=== PATIENT | female | born 1965 | race Caucasian/White ===

== ENCOUNTER 2018-03-22 22:53 | Observation (INO) | payer BC ==
[~2018-03-22] VITALS: Ht 160 cm; Wt 100.0 kg
[2018-03-22 23:30] VITALS: BP 144/92
[2018-03-22 23:30] LABS: HEMATOCRIT 44.5 % (36.0-48.0); HEMOGLOBIN 14.5 g/dL (12-16); LYMPHOCYTES 22.9 % (15-50); MCH 26.3 pg (26.0-34.0); MCHC 32.6 g/dL (31.0-37.0); MCV 80.6 fL (80.0-100.0); NEUTROPHILS 68.9 % (40-80); PLATELET COUNT 203 10x3/uL (130-400); RBC 5.52 10x6/uL (4.00-5.40); RDW 14.1 % (11.5-14.5); WBC 8.8 10x3/uL (4.8-10.8)
[2018-03-22 23:54] LABS: ALBUMIN 3.8 g/dL (3.4-5.0); ALKALINE PHOSPHATASE 56 U/L (46-116); ALT (SGPT) 31 U/L (10-68); BILIRUBIN - TOTAL 0.51 mg/dL (0.2-1.3); CALC OSMOLALITY 286 mosm/kg (275-300); CALCIUM 9.7 mg/dL (8.5-10.1); CARBON DIOXIDE 31.7 mmol/L (21.0-32.0); CHLORIDE - SERUM 102 mmol/L (98-107); CREATININE - SERUM 0.7 mg/dL (0.6-1.3); GLUCOSE 96 mg/dL (74-106); POTASSIUM - SERUM 3.9 mmol/L (3.5-5.1); PROTEIN - SERUM 8.1 g/dL (6.4-8.2); SODIUM 143 mmol/L (136-145); UREA NITROGEN 18 mg/dL (7-18); eGFR NON AFRICAN AMERICAN > 90 mL/min (90-120)
[2018-03-22 23:59] LABS: TROPONIN-I < 0.017 ng/mL (0.000-0.060)
[2018-03-23] VITALS (14 sets, daily range): BP systolic 115–145; BP diastolic 71–93
[2018-03-23 07:33] LABS: CREATINE KINASE 76 UL (21-215); TROPONIN-I < 0.017 ng/mL (0.000-0.060)
[2018-03-23 11:52] LABS: CKMB 0.7 U/L (0.0-3.6); CREATINE KINASE 68 UL (21-215); TROPONIN-I < 0.017 ng/mL (0.000-0.060)
[2018-03-23 18:26] LABS: CKMB 0.6 U/L (0.0-3.6); CREATINE KINASE 124 UL (21-215); TROPONIN-I < 0.017 ng/mL (0.000-0.060)
[2018-03-23] MEDS ORDERED: OMEPRAZOLE20 M1 PO (20:54)
[2018-03-23] MEDS ORDERED: TUMS X-STR300 MG PO (20:55)
[2018-03-24 02:57] VITALS: Ht 160 cm; Wt 100.0 kg
[2018-03-24 05:14] VITALS: BP 124/75
[2018-03-24 08:01] VITALS: BP 139/79
[2018-03-24 11:32] VITALS: BP 127/75
[2018-03-24] MEDS ORDERED: CARAFATE1 G/10 ML PO (12:52)
[2018-03-28 15:23] LABS: RMSF IGM 0.71 index (0.00-0.89)
== END 2018-03-24 15:21 | disposition home or self-care (01) ==
LOC: D.ER 22:53 → D.EDHOLD 03-23 00:54 → D.M2 03-23 00:54 → D.EDHOLD 03-23 00:54 → OBSVTIME 03-23 00:54 → D.M2 03-23 14:50
PROVIDERS: Family Medicine; Internal Medicine Cardiovascular Disease
DX: K21.0 Gastro-esophageal reflux disease with esophagitis (principal); K44.9 Diaphragmatic hernia without obstruction or gangrene; K22.10 Ulcer of esophagus without bleeding; K29.80 Duodenitis without bleeding; K31.7 Polyp of stomach and duodenum; I34.0 Nonrheumatic mitral (valve) insufficiency

== ENCOUNTER → 2018-04-04 11:08 | Outpatient (CLI) | payer BC ==
[~2018-04-04 11:08] MED LIST: CARAFATE1 G/10 ML PO; OMEPRAZOLE20 M1 PO; PROVENTIL HFA6.7 GM INH; STERAPRED DS 1210 MG PO; TUMS X-STR300 MG PO; VIBRAMYCIN 100100 MG PO
[2018-04-05 10:19] LABS: IMMUNOGLOBULIN A 322 mg/dL (87-352)
[2018-04-06 12:18] LABS: ANTIGLIADIN IGA 5 units (0-19); ANTIGLIADIN IGG 2 units (0-19)
[2018-04-06 14:25] LABS: T-TRANSGLUTAMINASE IGA <2 U/mL (0-3); T-TRANSGLUTAMINASE IGG <2 U/mL (0-5)
== END | disposition home or self-care (01) ==
LOC: D.LAB 10:15
PROVIDERS: Internal Medicine Gastroenterology
DX: R10.9 Unspecified abdominal pain (principal); R07.89 Other chest pain

== ENCOUNTER 2018-05-08 15:24 | Emergency (ER) | payer BC ==
[~2018-05-08] VITALS: Ht 160 cm; Wt 90.9 kg
[~2018-05-08 15:24] MED LIST changes: -PROVENTIL HFA6.7 GM INH; -STERAPRED DS 1210 MG PO; -VIBRAMYCIN 100100 MG PO
[2018-05-08 15:37] VITALS: Ht 160 cm; Wt 90.9 kg
[2018-05-08 15:57] LABS: BASOPHILS 0.4 % (0-2); EOSINOPHILS 3.4 % (0-7); HEMATOCRIT 42.7 % (36.0-48.0); HEMOGLOBIN 14.3 g/dL (12-16); IMMATURE GRANULOCYTES 0.4 % (0-5); LYMPHOCYTES 25.3 % (15-50); MCH 27.4 pg (26.0-34.0); MCHC 33.5 g/dL (31.0-37.0); MEAN PLATELET VOLUME 10.1 fL (7.4-10.4); MONOCYTES 8.2 % (2-11); NEUTROPHILS 62.3 % (40-80); PLATELET COUNT 221 10x3/uL (130-400); RBC 5.21 10x6/uL (4.00-5.40); RDW 15.4 % (11.5-14.5); WBC 8.1 10x3/uL (4.8-10.8)
[2018-05-08 16:33] LABS: ALBUMIN 3.4 g/dL (3.4-5.0); ANION GAP 11.8 mmol/L (8-16); BILIRUBIN - TOTAL 0.53 mg/dL (0.2-1.3); CARBON DIOXIDE 26.7 mmol/L (21.0-32.0); CREATININE - SERUM 1.1 mg/dL (0.6-1.3); POTASSIUM - SERUM 3.5 mmol/L (3.5-5.1); PROTEIN - SERUM 7.5 g/dL (6.4-8.2)
[2018-05-08] MEDS ORDERED: PROVENTIL HFA6.7 GM INH (18:37)
[2018-05-08 20:04] VITALS: BP 120/86
== END 2018-05-08 20:06 | disposition home or self-care (01) ==
LOC: D.ER 15:24
PROVIDERS: Family Medicine
DX: J18.9 Pneumonia, unspecified organism (principal); I10 Essential (primary) hypertension

== ENCOUNTER → 2018-05-30 13:46 | Outpatient (CLI) | payer BC ==
[2018-05-08 15:37] VITALS: BMI 35.5
[~2018-05-30 13:46] MED LIST changes: +PROVENTIL HFA6.7 GM INH; +STERAPRED DS 1210 MG PO; +VIBRAMYCIN 100100 MG PO
[2018-05-31 07:37] LABS: HEPATITIS C ANTIBODY 0.2 (0.0-0.9)
[2018-05-31 09:16] LABS: ANA REFLEX - DIRECT Negative (Negative)
[2018-06-01 13:19] LABS: EHRLICHIA CHAFF IGG Negative (Neg:<1:64); EHRLICHIA CHAFF IGM Negative (Neg:<1:20); HGE IGG TITER Negative (Neg:<1:64); HGE IGM TITER Negative (Neg:<1:20)
[2018-06-01 15:25] LABS: RMSF IGM 1.19 index (0.00-0.89)
[2018-06-05 08:09] LABS: F. TULARENSIS - IGG Negative (()); F. TULARENSIS - IGM Negative (())
== END | disposition home or self-care (01) ==
LOC: D.LABREF 13:46
PROVIDERS: Student in an Organized Health Care Education/Training Program
DX: R50.9 Fever, unspecified (principal)

== ENCOUNTER 2018-06-13 08:34 | Day surgery (SDC) | payer BC ==
[~2018-06-13] VITALS: Ht 160 cm; Wt 90.9 kg
--- NOTE | ~2018-06-13 | OP ---
PATIENT NAME: OZZY WILD MEDICAL RECORD: [id number] :69 LOCATION:[facility] ADMISSION DATE: SURGEON: DENI WEISS MD DATE OF OPERATION: 06/13/2018 PROCEDURE: Fiberoptic bronchoscopy. INDICATION: Ms. Wild was recently having pneumonia, having abnormal CT scan of the chest which showed tree-in-bud appearance of the right lower lobe. Fiberoptic bronchoscopy was carried out to inspect the airway as well as to obtain the specimen for culture and sensitivity. PROCEDURE IN DETAIL: After signing the consent, the fiberoptic bronchoscope was easily passed through the mouth. The epiglottis was normal. The vocal cords were normal, moved equally on phonation. The main trachea was normal. The shakir was sharp. The subsegment to the right upper lobe within normal range. No endobronchial lesion was seen. The subsegment to the right middle lobe, right lower lobe within normal range. No endobronchial lesion was seen. There was no yellowish secretion in the right lower lobe. The left main bronchus was normal. The subsegment to the left upper lobe, left lower lobe, lingula within normal range. No endobronchial lesion was seen. Specimen washing was obtained from the right lower lobe, sent for routine culture and sensitivity, AFB and fungus and cytology. Overall, the patient tolerated the procedure very well. TRANSINT:[id number] Voice Confirmation ID: [id number] DOCUMENT ID: [id number] DENI WEISS MD CC: [id number] DICTATION DATE: 06/13/18 1235 ARMATURE WINDER REPAIRER: 06/13/18 1248 [id number] [place] [address]
[~2018-06-13 08:34] MED LIST changes: -STERAPRED DS 1210 MG PO; -VIBRAMYCIN 100100 MG PO
[2018-06-13 09:05] LABS: BASOPHILS 0.7 % (0-2); EOSINOPHILS 3.2 % (0-7); HEMATOCRIT 40.8 % (36.0-48.0); HEMOGLOBIN 13.2 g/dL (12-16); IMMATURE GRANULOCYTES 0.2 % (0-5); LYMPHOCYTES 39.1 % (15-50); MCH 26.6 pg (26.0-34.0); MCHC 32.4 g/dL (31.0-37.0); MCV 82.3 fL (80.0-100.0); MEAN PLATELET VOLUME 10.1 fL (7.4-10.4); MONOCYTES 8.1 % (2-11); NEUTROPHILS 48.7 % (40-80); PLATELET COUNT 237 10x3/uL (130-400); RBC 4.96 10x6/uL (4.00-5.40); RDW 15.4 % (11.5-14.5); WBC 5.9 10x3/uL (4.8-10.8)
[2018-06-13 09:16] LABS: APTT 26.9 SECONDS (22.8-39.4); INR 0.98 (0.85-1.17); PROTIME 12.6 SECONDS (11.6-15.0)
[2018-06-13] MEDS ORDERED: VIBRAMYCIN 100100 MG PO (09:33)
[2018-06-13] MEDS ORDERED: STERAPRED DS 1210 MG PO (09:34)
[2018-06-13] MEDS ORDERED: OMEPRAZOLE20 M1 PO (09:36)
[2018-06-13 09:46] VITALS: BP 130/92; Ht 160 cm; Wt 90.9 kg
[2018-06-15 20:09] LABS: ACID FAST SMEAR Negative (()); AFB SPECIMEN PROCESSING Concentration (())
[2018-06-16 14:23] LABS: FUNGUS STAIN Final report (())
== END 2018-06-13 14:40 | disposition home or self-care (01) ==
LOC: D.OPS 08:34
PROVIDERS: Internal Medicine Pulmonary Disease
DX: R91.8 Other nonspecific abnormal finding of lung field (principal); Z87.01 Personal history of pneumonia (recurrent); Z01.812 Encounter for preprocedural laboratory examination